=== PATIENT | male | born 1955 | race Caucasian/White ===

== ENCOUNTER → 2021-04-11 08:09 | Outpatient (BNVA) | payer OTHER, SELFPAY | PROVIDERS: PCP Internal Medicine; Visit Provider Internal Medicine Rheumatology ==

== ENCOUNTER → 2021-05-19 07:26 | Outpatient (BNVA) | payer OTHER, SELFPAY | PROVIDERS: PCP Internal Medicine; Referring Provider Internal Medicine; Visit Provider Physician Assistant | DX: Z13.89 Encounter for screening for other disorder (principal) ==

== ENCOUNTER 2021-07-12 08:00 | Outpatient (REF) | payer OTHER, SELFPAY ==
[2021-07-12 08:49] LABS: MANUAL DIFF FLAG NO
[2021-07-12 09:00] LABS: Basophils Percent Auto 0.3 % (0-2); Eosinophils Absolute Auto 0.3 X10*3/uL (0.0-0.4); Eosinophils Percent Auto 2.9 % (0-4); Hematocrit 49.6 % (42.0-52.0); Imm Gran Abs Auto 0.03 X10*3/uL (0.00-0.03); Imm Gran Pct Auto 0.3 % (0.0-0.4); Lymphocytes Absolute Auto 2.3 X10*3/uL (1.2-4.9); Mean Corpuscular HGB Conc 32.3 g/dl (31.0-36.0); Mean Platelet Volume 10.2 fL (9.4-12.4); Monocytes Absolute Auto 0.9 X10*3/uL (0.1-1.2); Monocytes Percent Auto 8.9 % (2-11); Neutrophils Absolute Auto 6.4 x10*3/uL (2.0-8.3); Neutrophils Percent Auto 64.6 % (45-73); Platelet Count 306 X10*3/uL (160-400); Red Blood Count 5.51 X10*6/uL (4.60-5.80); Red Cell Distribution Width 14.1 % (11.0-16.0); White Blood Count 9.9 X10*3/uL (4.8-10.8)
[2021-07-12 09:43] LABS: Erythrocyte Sedimentation Rate 7 MM/HR (0-15)
[2021-07-12 09:54] LABS: Alanine Aminotransferase 16 U/L (0-40); Albumin Level 3.9 g/dL (3.5-5.0); Alkaline Phosphatase 88 U/L (39-117); Anion Gap 12 (12-20); Aspartate Amino Transferase 19 U/L (5-37); Bilirubin Total 0.4 mg/dL (0.0-1.0); Blood Urea Nitrogen 16 mg/dL (9-16); C Reactive Protein 2.45 mg/dL (< or = 0.50); Calcium 9.3 mg/dL (8.4-10.2); Carbon Dioxide 26 mmol/L (22-29); Chloride 105 mmol/L (96-108); Estimated Glomerular Filt Rate > 60; Glucose Random 99 mg/dL (60-115); Potassium 5.3 mmol/L (3.3-5.1); Sodium 138 mmol/L (135-145); Total Protein 7.4 g/dL (6.5-8.0)
[2021-07-15 08:57] LABS: TS Negative Control Passed; TS Panel A 0; TS Panel B 0; TS Positive Control Passed; TSpotTB Negative (Negative)
== END 2021-07-12 08:01 | disposition home or self-care (01) ==
LOC: HO.LAB 08:00
PROVIDERS: PCP Internal Medicine; Visit Provider Internal Medicine Rheumatology
DX: Z11.1 Encounter for screening for respiratory tuberculosis (principal); M45.0 Ankylosing spondylitis of multiple sites in spine; M16.0 Bilateral primary osteoarthritis of hip; Z79.899 Other long term (current) drug therapy
CPT/HCPCS: 36415; 80053; 85025; 85652; 86140; 86481

== ENCOUNTER 2021-09-12 08:52 | Day surgery (SDC) | payer OTHER, SELFPAY ==
--- NOTE | 2021-09-09 09:57 | HO.ANESPROP2 ---
Documented by User: Myriam Carney NP 09/09/21 09:58 HPI - Anesthesia Eval Consult details Narrative: 66yo M for Colonoscopy PMFSH Active Problems Active Problems: All Active Problems (Updated 09/06/21 @ 16:15 by Brooklyn Aponte RN) History of diverticulitis of colon (Acute) Osteoarthritis, hip, bilateral (Acute) Long-term use of immunosuppressant medication (Acute) Diverticulosis (Acute) Ankylosing spondylitis of multiple sites in spine (Acute) Past Medical History Medical History Ankylosing spondylitis of multiple sites in spine Diverticulosis Elevated cholesterol Long-term use of immunosuppressant medication Osteoarthritis, hip, bilateral Smoker Social History Social History Household Members: Significant Other Housing: House Are you a primary career resource specialist to a significant other at home: No Do you presently have visiting nurse or other home services: No Alcohol intake: never Patient Tobacco Use Status: Current everyday Tobacco user Tobacco use type: Cigarette Cigarette Packs Per Day: 1 Cigarettes Per Day: 20.0 Years Smoked: 20 years e-Cigarette/Vaping Use: Never Used Second Hand Smoke Exposure: Yes Use of substances other than those prescribed or required for medical reasons: Yes Substance Use Frequency: Daily Are you DNR?: No Advance Directives: No Advance Directives Information Provided: Yes service: No Meds Allergies Allergy/AdvReac Type Severity Reaction Status Date / Time No Known Allergies Allergy Unverified 09/06/21 16:16 [No Known Allergies*] Home Medications Medication Instructions Recorded Confirmed Last Taken Type atorvastatin 10 mg tablet 10 mg PO DAILY 04/11/21 09/06/21 Unknown History naproxen sodium 220 mg tablet 440 mg PO BID PRN Pain 04/11/21 09/06/21 Unknown History (Aleve) Exam Exam Date and Time: September 09, 2021 0957 Pertinent Lab Results Pertinent Lab Results: Laboratory Tests 07/12/21 07/12/21 08:48 08:48 WBC 9.9 Hgb 16.0 Hct 49.6 Plt Count 306 Sodium 138 Potassium 5.3 H Chloride 105 Carbon Dioxide 26 BUN 16 Creatinine 0.87 Assessment and Plan Assessment Anesthesia Assessment: Chart Reviewed Documented by User: Agnieszka Phelan MD 09/12/21 10:18 PMFSH Past Medical History Medical History Ankylosing spondylitis of multiple sites in spine Diverticulosis Elevated cholesterol Long-term use of immunosuppressant medication Osteoarthritis, hip, bilateral Smoker Surgical History History of Problems with Anesthesia: No Social History Social History Household Members: Significant Other Housing: House Are you a primary career resource specialist to a significant other at home: No Do you presently have visiting nurse or other home services: No Alcohol intake: never Patient Tobacco Use Status: Current everyday Tobacco user Tobacco use type: Cigarette Cigarette Packs Per Day: 1 Cigarettes Per Day: 20.0 Years Smoked: 20 years e-Cigarette/Vaping Use: Never Used Second Hand Smoke Exposure: Yes Use of substances other than those prescribed or required for medical reasons: Yes Substance Use Frequency: Daily Are you DNR?: No Advance Directives: No Advance Directives Information Provided: Yes service: No Meds Allergies Allergy/AdvReac Type Severity Reaction Status Date / Time No Known Allergies Allergy Unverified 09/06/21 16:16 [No Known Allergies*] Home Medications Medication Instructions Recorded Confirmed Last Taken Type atorvastatin 10 mg tablet 10 mg PO DAILY 04/11/21 09/06/21 Unknown History naproxen sodium 220 mg tablet 440 mg PO BID PRN Pain 04/11/21 09/06/21 Unknown History (Aleve) Exam Airway Mallampati Class: II (Edentulous) TM Dist: >3cm Neck ROM: Limited Denture: Upper and Lower Loose/Missing/Broken Teeth: Yes, Upper and Lower Heart: RRR Lungs: CTA Assessment and Plan Assessment Anesthesia Assessment: Anesthesia Plan Discussed Final Anesthetic Review History of Problems with Anesthesia: No NPO: Yes ASA Class: II Final Preanesthetic Review: Meds/Allgs Chart Reviewed, Consent Obtained/Reviewed and Anes Risks/Benef Reviewed Patient Risk: Low Procedure Risk: Low Anesthetic Plan Anesthetic Plan: MAC: Disposition: Standard PACU
[2021-09-12 09:05] VITALS: BP 99/82; PULSE 59; RESP 16; TEMP 36.5; O2SAT 98; BMI 22.1
[2021-09-12] MEDS: Lactated Ringers 1,000 ML 100 ML IVCONT (09:14)
--- NOTE | 2021-09-12 09:56 | MHC.SHP ---
Pre-Procedural Eval Section A Date of Service: 09/12/21 The patient is an INPATIENT: No The History & Physical has been completed within 30 days and I have reviewed it.: No Section B Chief Complaint: Diverticulosis of intestine,screening,hx digestive Details of Present Illness: Colon cancer screen, passed episode of diverticulitis Relevant Family History (Specify if Yes): No Relevant Social History: Tobacco Use Present Medications: see Short Stay Collaborative assessment Medical History: Significant History (Ankylosing spondylitis of multiple sites in spine Diverticulosis Long-term use of immunosuppressant medication Osteoarthritis, hip, bilateral) History of Previous Operations: No relevant previous surgery Allergies: Allergies Allergy/AdvReac Type Severity Reaction Status Date / Time No Known Allergies Allergy Unverified 09/06/21 16:16 [No Known Allergies*] Review of Systems Sugical H&P ROS: Negative: Constitution, Cardiovascular, Respiratory and Gastrointestinal Exam Surgical H&P Exam: Normal: Heart, Normal: Lungs, Normal: Extremities and Normal: Abdomen Plan Diagnosis/Plan: Unchanged I have reviewed the history and physical and performed a pertinent physical examination on my patient. No changes have occurred unless specified.
--- NOTE | 2021-09-12 10:07 | P.OP_ITS ---
Operative Note Operative Note Date of Service: 09/12/21 Narrative: Pre-op diagnosis: Colon cancer screening, past episode of diverticulitis Post-op diagnosis:?other (Colon polyps, diverticulosis, hemorrhoids) Procedure: ? COLONOSCOPY TILL CECUM WITH BIOPSIES, SNARE POLYPECTOMY AND SUBMUCOSAL INJECTION Consent: Indications for the procedure and potential complications of bleeding, perforation, reaction to medications and missed diagnosis were discussed with the patient and informed consent was obtained. Instrument: Olympus PCF H 190 L variable stiffness pediatric colonoscope Monitoring: Vital signs and clinical assessment, intermittent blood pressure monitoring, continuous EKG monitoring, Pulse oximetry and Carbon Dioxide monitoring were done throughout the procedure. Colon withdrawl time was 35 minutes. Procedure: The patient was placed in the left lateral decubitis position and pre-procedure medications were administered. After a digital rectal examination of the ano-rectum, the video colonoscope was inserted into the rectum and advanced through the colon to the cecum. The colonoscope was slowly withdrawn in a retrograde panoramic fashion and the colon mucosa was carefully examined including a retroflexed view of the rectum. Findings and interventions are described below. Procedure Difficulty: Without difficulty Findings: Terminal Ileum: Not evaluated Cecum:? A 1.5 to 1.8 mm sessile polyp at the margin of the appendicualr orifice - raised with 15 cc of normal saline and removed with a hot snare.? Residual polyp was removed with cold biopsy and polypectomy site was treated with cautery using the snare tip Ascending Colon:? Normal Transverse Colon:? A 12-15 mm sessile polyp removed with a hot snare Descending Colon:? Moderate diverticulosis Sigmoid Colon:? Moderate diverticulosis Rectum:? A 10 mm sessile polyp removed with the cold snare. Ano-rectum:? Moderate internal hemorrhoids Colon preparation: Excellent ? Impression and Post Procedure Diagnosis: Colonoscopy Findings: Three medium sized polyps removed. Random biopsies were obtained from the right and left colon to check for microscopic colitis Moderate diverticulosis seen in the left colon Moderate hemorrhoids on retroflexed exam. Plan: Await pathology results Patient has an appointment on 10/03/21 in the [facility] with BRADEN Brito. Repeat Colonoscopy interval based on path results - in 1 year if cecal polyp is adenomatous to check polypectomy site in the cecum. Above findings were reviewed with the patient and colon polyps and diverticulosis handouts were given in the discharge area Surgeon: Chivo Wiggins MD Anesthesia:?MAC (Dr Phelan) Was an Education And Training Manager used for this Procedure?:?Yes Education And Training Manager:?Pierce Haynes Estimated blood loss (mL):?0 Pathology:?other (A- TRANSVERSE COLON POLYP? B- POLYP AT APPENDICEAL ORIFACE? O- RISE USED? C- RIGHT SIDED COLON BXS? R/O MICROSCOPIC COLITIS? D- LEFT SIDED COLON BXS? R/O MICROSCOPIC COLITIS? E= RECTAL POLYP) Condition:?stable Disposition:?PACU
[2021-09-12 10:57] VITALS: BP 95/51; PULSE 62; RESP 20; TEMP 36.3; O2SAT 98
[2021-09-12 11:12] VITALS: BP 98/59; PULSE 52; RESP 22; O2SAT 99
[2021-09-12 11:27] VITALS: BP 103/67; PULSE 53; RESP 16; TEMP 36.5; O2SAT 98
== END 2021-09-12 12:02 | disposition home or self-care (01) ==
PROVIDERS: PCP Internal Medicine; Visit Provider Internal Medicine Gastroenterology
PROC: 0DJD8ZZ Inspection of Lower Intestinal Tract, Via Natural or Artificial Opening Endoscopic (ICD-10-PCS; CPT 45378; principal; 2021-09-12 10:00)
DX: Z12.11 Encounter for screening for malignant neoplasm of colon (principal); D12.0 Benign neoplasm of cecum; D12.3 Benign neoplasm of transverse colon; D12.8 Benign neoplasm of rectum; K57.30 Diverticulosis of large intestine without perforation or abscess without bleeding; Z87.19 Personal history of other diseases of the digestive system; K64.8 Other hemorrhoids; M16.0 Bilateral primary osteoarthritis of hip; Z79.899 Other long term (current) drug therapy; F17.210 Nicotine dependence, cigarettes, uncomplicated
CPT/HCPCS: 45385; 45380; 45381; 88305

== ENCOUNTER → 2022-04-03 08:14 | Outpatient (BNVA) | payer OTHER, SELFPAY | PROVIDERS: PCP Internal Medicine; Visit Provider Internal Medicine Rheumatology | DX: Z13.89 Encounter for screening for other disorder (principal) ==

== ENCOUNTER 2022-04-03 09:08 | Outpatient (REF) | payer OTHER, SELFPAY ==
[2022-04-03 10:40] LABS: MANUAL DIFF FLAG NO
[2022-04-03 10:46] LABS: Basophils Percent Auto 0.3 % (0-2); Eosinophils Absolute Auto 0.3 X10*3/uL (0.0-0.4); Eosinophils Percent Auto 3.1 % (0-4); Hematocrit 49.7 % (42.0-52.0); Hemoglobin 16.4 g/dl (14.0-18.0); Imm Gran Abs Auto 0.03 X10*3/uL (0.00-0.03); Imm Gran Pct Auto 0.3 % (0.0-0.4); Lymphocytes Absolute Auto 2.2 X10*3/uL (1.2-4.9); Lymphocytes Percent Auto 22.4 % (20-40); Mean Corpuscular Hemoglobin 30.2 pg (27.0-33.0); Mean Corpuscular Volume 91.5 fL (80.0-98.0); Mean Platelet Volume 10.6 fL (9.4-12.4); Monocytes Percent Auto 9.8 % (2-11); Neutrophils Absolute Auto 6.4 x10*3/uL (2.0-8.3); Neutrophils Percent Auto 64.1 % (45-73); Platelet Count 349 X10*3/uL (160-400); Red Blood Count 5.43 X10*6/uL (4.60-5.80); Red Cell Distribution Width 14.2 % (11.0-16.0); White Blood Count 9.9 X10*3/uL (4.8-10.8)
[2022-04-03 10:57] LABS: C Reactive Protein 2.53 mg/dL (< or = 0.50)
[2022-04-03 11:27] LABS: HBS Num1 0.07 mIU/mL (0-7.99); HBc Num1 0.16 S/CO (0.00-0.79); HBsAGNum1 0.33 S/CO (0.00-0.99); Hepatitis A Antibody IgM 0.23 Index (0-0.79); Hepatitis B Core Antibody Nonreactive (Nonreactive); Hepatitis B Surface Antigen Negative (Negative); ~HepC Num1 0.16 S/CO (0.00-0.79); ~Hepatitis A Antibody IgM Nonreactive (Nonreactive); ~Hepatitis B Surface Antibody NONREACTIVE (Nonreactive); ~Hepatitis C Antibody Nonreactive (Nonreactive)
[2022-04-03 11:32] LABS: Erythrocyte Sedimentation Rate 12 MM/HR (0-15)
== END 2022-04-03 09:09 | disposition home or self-care (01) ==
LOC: HO.10HDL 09:08
PROVIDERS: Visit Provider Internal Medicine Rheumatology
DX: M45.0 Ankylosing spondylitis of multiple sites in spine (principal); Z79.899 Other long term (current) drug therapy
CPT/HCPCS: 36415; 85025; 85652; 86140; 86704; 86706; 86709; 86803; 87340

== ENCOUNTER 2022-10-02 10:37 | Outpatient (AMB) | payer MEDICARE, SELFPAY ==
[2022-10-02 10:38] VITALS: BP 100/60; PULSE 71; TEMP 36.4; O2SAT 98; BMI 24.3
--- NOTE | 2022-10-02 10:38 | A.OFFVIS_ITS ---
Intake Vital Signs 10/02/22 10:38 Height 5 ft 3 in Weight 137 lb 5.568 oz BMI 24.3 BP 100/60 Blood Pressure Location Lt brachial Position Sitting Pulse 71 Pulse Source Pulse Oximeter Temp 97.5 F Temp Source Skin Pulse Oximetry (%) 98 Oxygen Delivery Method Room Air Intake Visit Reasons: Intake Note: Here to follow up on . Sausage Maker Required: No Accompanied by: Self / Same As Patient Allergies No Known Allergies [No Known Allergies*] Allergy (Unverified 10/02/22 10:43) Medication List - Last Reconciled 10/02/22 by Jim Chapin MD atorvastatin 10 mg PO DAILY etanercept (Enbrel SureClick) 50 mg subcut QWEEK naproxen sodium (Aleve) 440 mg PO BID PRN HPI HPI Comments History of Present Illness Details The patient returns for evaluation of his ankylosing spondylitis. He remains on Enbrel 50 mg every week. This seems to suit him fine. He takes occasional Aleve if needed for other pains including occasional headache. He has been on the Enbrel for about 20 years. There have been times when he could not get the Enbrel and felt miserable with more back and neck pain and stiffness. He is now retired and notes that he did gain some weight. His woman friend with whom he lives developed COVID earlier this year and was hospitalized. She is slowly recovering but he thinks he never actually got symptomatic COVID. He has not had any recent symptoms of iritis, skin rashes, or bloody diarrhea. He is still smoking about 1/2 pack per day. PFSH Medical History Ankylosing spondylitis of multiple sites in spine Diverticulosis Elevated cholesterol Long-term use of immunosuppressant medication Osteoarthritis, hip, bilateral Smoker Surgical History Hx of colonoscopy Social History Household Members: Significant Other Housing: House Are you a primary health care coach to a significant other at home: No Do you presently have visiting nurse or other home services: No Alcohol intake: never Patient Tobacco Use Status: Current everyday Tobacco user Tobacco use type: Cigarette Cigarette Packs Per Day: 0.5 Cigarettes Per Day: 10.0 Years Smoked: 20 years e-Cigarette/Vaping Use: Never Used Second Hand Smoke Exposure: Yes service: No Current occupational status: retired 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 Review of Systems Const Details: A few lb weight gain since jail. Negative for appetite change, fever, chills, malaise and fatigue Eyes Details: Negative for vision change, dry eyes,headaches and dizziness Card Details: Negative chest pain, edema and syncope Resp Details: Negative for SOB, cough and wheezing GI Details: Negative indigestion/heartburn, nausea, abdominal pain, bowel changes, diarrhea, constipation and bloody stool. Skin/Breast Details: Negative for itching, rash, hives, Raynaud's symptoms, sun sensitivity, and skin cancer Gage/Lymph Details: Negative for excessive bruising or bleeding. Physical Exam Vital Signs: Last Vital Signs Temp 97.5 F 10/02/22 10:38 Pulse 71 10/02/22 10:38 BP 100/60 10/02/22 10:38 Pulse Ox 98 10/02/22 10:38 Oxygen Delivery Method Room Air 10/02/22 10:38 BMI result Body Mass Index 24.3 APPEARANCE: Patient in no acute distress EYES no redness, pupils equal and reactive to light, eyelids normal THROAT:? Oral mucosa moist, no ulcerations NECK:? No thyromegaly or masses, no adenopathy, trachea midline. HEART:? Regulrar rhythm, S1-S2 heard, no murmurs, rubs or gallops. LUNG:? Clear to percussion and auscultation ABD:? Normal bowel sounds, no organomegaly, masses or tenderness. EXTREMITIES:? No edema, no calf tenderness, normal peripheral pulses. SKIN:? No inflammatory or neoplastic lesions.? Normal color and turgor JOINT EXAM: ? Cervical Spine:? Lateral flexion limited to 10 degrees either side with slight pain.? Rotation is limited to about 15 degrees also with pain.? With his heels against the wall he cannot extend the neck fully and there is about 6 cm between the occiput and the wall.? Thoracic Spine:.? No scoliosis.? No tenderness on palpation.? There is only about 0.5 cm lateral Naz's lateral flexion evident. Lumbar Spine:.? Alignment normal.? No lumbar motion, no tenderness. Chest Wall:.? No tenderness, swelling, increased warmth or erythema. Hands:.? Normal pain-free range of motion without tenderness, swelling, increased warmth or erythema. 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 Wrists:.? Normal pain-free range of motion without tenderness, swelling, incre ased warmth or erythema. Elbows:. Normal pain-free range of motion without tenderness, swelling, increased warmth or erythema. Shoulders:.? Right:? Normal pain-free range of motion.? No adenopathy, abductor weakness, tenderness or swelling.? Left:? No discomfort with abduction but he can only abduct to about 150 degrees.? There may be some limitation of internal external rotation as well.? There is no tenderness, abductor weakness, adenopathy or swelling. Hips:? Right:? Flexion is normal and pain-free.? There is no discomfort with extremes of external rotation.? No internal rotation is possible.? There is no groin pain with motion.?? Left:? Flexion and external rotation seem normal.? There is decreased range of motion with internal rotation but no pain.? No groin tenderness or mass. Hip bursa:.? No tenderness. Knees:.?? Normal pain-free range of motion without tenderness, swelling, increased warmth or erythema.? There is no effusion or crepitation Ankles:? Normal pain-free range of motion without tenderness, swelling, increased warmth or erythema. ? Results Reviewed Results Reviewed: Laboratory Tests 07/12/21 04/03/22 04/03/22 08:48 09:05 09:05 WBC 9.9 ESR 12 C-Reactive Protein Hep Bs Antigen TB Test (T-Spot) Com Negative 04/03/22 04/03/22 09:05 09:05 WBC ESR C-Reactive Protein 2.53 H Hep Bs Antigen Negative TB Test (T-Spot) Com Assessment & Plan Assessment & Plan (1) Long-term use of immunosuppressant medication: Code(s): Z79.899 - Other intermediate teacher (current) drug therapy (2) Osteoarthritis, hip, bilateral: Code(s): M16.0 - Bilateral primary osteoarthritis of hip (3) Ankylosing spondylitis of multiple sites in spine: Comment: 20+ years of symptoms, hx iritis, did well on Enbrel since 2006 Code(s): M45.0 - Ankylosing spondylitis of multiple sites in spine Plan Ankylosing spondylitis with no significant symptoms on the current dose of Enbrel. He does have some limitation of motion in the hips reflecting some secondary osteoarthritis but this does not really bother him on a day-to-day basis so far. Similarly there is some limited motion in the shoulders with some discomfort. We will check acute phase reactants and CBC. He will continue with the Enbrel as above. A follow-up in 6 months would be reasonable. Orders: Orders C Reactive Protein Today M45.0 - Ankylosing spondylitis of multiple sites in spine, Z79.899 - Other senior care (current) drug therapy Complete Blood Count Auto Diff Today M45.0 - Ankylosing spondylitis of multiple sites in spine, Z79.899 - Other senior care (current) drug therapy Erythrocyte Sedimentation Rate Today M45.0 - Ankylosing spondylitis of multiple sites in spine, Z79.899 - Other intermediate teacher (current) drug therapy Coding Level of Care Code Est Pt Level 3 (14604) Diagnoses Long-term use of immunosuppressant medication Z79.899 Osteoarthritis, hip, bilateral M16.0 Ankylosing spondylitis of multiple sites in spine M45.0
== END 2022-10-02 11:09 | disposition home or self-care (01) ==
PROVIDERS: PCP Internal Medicine; Visit Provider Internal Medicine Rheumatology
DX: Z79.899 Other long term (current) drug therapy (principal); M16.0 Bilateral primary osteoarthritis of hip; M45.0 Ankylosing spondylitis of multiple sites in spine
CPT/HCPCS: 99213

== ENCOUNTER → 2022-10-02 10:37 | Outpatient (BNVA) | payer MEDICARE, SELFPAY | PROVIDERS: PCP Internal Medicine; Visit Provider Internal Medicine Rheumatology | DX: M45.0 Ankylosing spondylitis of multiple sites in spine (principal); M16.0 Bilateral primary osteoarthritis of hip; F17.210 Nicotine dependence, cigarettes, uncomplicated; Z79.60 Long term (current) use of unspecified immunomodulators and immunosuppressants | CPT/HCPCS: 36415; 85025; 85652; 86140; 99212 ==

== ENCOUNTER 2022-10-02 11:13 | Outpatient (REF) | payer OTHER, MEDICARE, SELFPAY ==
[2022-10-02 13:11] LABS: MANUAL DIFF FLAG NO
[2022-10-02 13:20] LABS: Basophils Absolute Auto 0.1 X10*3/uL (0.0-0.2); Basophils Percent Auto 0.5 % (0-2); Eosinophils Absolute Auto 0.2 X10*3/uL (0.0-0.4); Hematocrit 52.3 % (42.0-52.0); Hemoglobin 17.2 g/dl (14.0-18.0); Imm Gran Abs Auto 0.03 X10*3/uL (0.00-0.03); Imm Gran Pct Auto 0.3 % (0.0-0.4); Lymphocytes Absolute Auto 2.3 X10*3/uL (1.2-4.9); Lymphocytes Percent Auto 22.5 % (20-40); Mean Corpuscular HGB Conc 32.9 g/dl (31.0-36.0); Mean Corpuscular Hemoglobin 29.7 pg (27.0-33.0); Mean Corpuscular Volume 90.2 fL (80.0-98.0); Mean Platelet Volume 10.4 fL (9.4-12.4); Monocytes Absolute Auto 0.8 X10*3/uL (0.1-1.2); Monocytes Percent Auto 8.2 % (2-11); Neutrophils Absolute Auto 6.8 x10*3/uL (2.0-8.3); Neutrophils Percent Auto 66.5 % (45-73); Platelet Count 376 X10*3/uL (160-400); Red Cell Distribution Width 14.4 % (11.0-16.0); White Blood Count 10.3 X10*3/uL (4.8-10.8)
[2022-10-02 13:28] LABS: C Reactive Protein 2.99 mg/dL (< or = 0.50)
[2022-10-02 14:09] LABS: Erythrocyte Sedimentation Rate 9 MM/HR (0-15)
== END 2022-10-02 11:14 | disposition home or self-care (01) ==
LOC: HO.10HDL 11:13
PROVIDERS: Visit Provider Internal Medicine Rheumatology
DX: Z13.89 Encounter for screening for other disorder (principal)
CPT/HCPCS: 36415; 85025; 85652; 86140

== ENCOUNTER 2023-03-22 09:26 | Outpatient (AMB) | payer OTHER, MEDICARE, SELFPAY ==
[2023-03-22 09:36] VITALS: BP 100/58; PULSE 55; TEMP 36.1; O2SAT 96; BMI 23.9
--- NOTE | 2023-03-22 09:36 | MHC.OFFVIS ---
Intake Vital Signs 03/22/23 09:36 Height 5 ft 3 in Weight 134 lb 14.766 oz BMI 23.9 BP 100/58 L Blood Pressure Location Rt brachial Position Sitting Pulse 55 Pulse Source Pulse Oximeter Temp 97 F Temp Source Skin Pulse Oximetry (%) 96 Oxygen Delivery Method Room Air Intake Visit Reasons: with laboratory technologist/Mar 2023 Intake Note: Patient last seen by Dr Chapin on 10/02/22 presents today for follow up and test results. Jacquard Loom Fixer Required: No Accompanied by: Self / Same As Patient Allergies No Known Allergies [No Known Allergies*] Allergy (Unverified 03/22/23 09:40) HPI HPI Comments History of Present Illness Details Mr. Spears 67yoM returns for follow-up of his ankylosing spondylitis. He remains on Enbrel 50 mg every week. This has been working for him he calls it his saviour . He takes occasional Aleve if needed for other pains including occasional headache and hip soreness which seems to help. He says since he is retired he feels achy more because he is less active and getting older. He has been on the Enbrel for about 20 years. There have been times when he could not get the Enbrel and felt miserable with more back and neck pain and stiffness. He has not had any recent symptoms of iritis, skin rashes, or bloody diarrhea. He is still smoking about 1/2 pack per day. [facility] Medical History (Updated 03/22/23 @ 10:35 by [facility] Psoriasis Elevated cholesterol Smoker Osteoarthritis, hip, bilateral Long-term use of immunosuppressant medication Diverticulosis Ankylosing spondylitis of multiple sites in spine Surgical History Hx of colonoscopy Social History Household Members: Significant Other Housing: House Are you a primary congregational care pastor to a significant other at home: No Do you presently have visiting nurse or other home services: No Alcohol intake: never Patient Tobacco Use Status: Current everyday Tobacco user Tobacco use type: Cigarette Cigarette Packs Per Day: 0.5 Cigarettes Per Day: 10.0 Years Smoked: 20 years e-Cigarette/Vaping Use: Never Used Second Hand Smoke Exposure: Yes service: No 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 Review of Systems Const All systems reviewed & are unremarkable except as noted in HPI and below Physical Exam Vital Signs: Last Vital Signs Temp 97 F 03/22/23 09:36 Pulse 55 03/22/23 09:36 BP 100/58 L 03/22/23 09:36 Pulse Ox 96 03/22/23 09:36 Oxygen Delivery Method Room Air 03/22/23 09:36 BMI result Body Mass Index 23.9 APPEARANCE: Patient in no acute distress EYES no redness, pupils equal and reactive to light, eyelids normal THROAT:? Oral mucosa moist, no ulcerations NECK:? No thyromegaly or masses, no adenopathy, trachea midline. HEART:? Regulrar rhythm, S1-S2 heard, no murmurs, rubs or gallops. LUNG:? Clear to percussion and auscultation EXTREMITIES:? No edema, no calf tenderness, normal peripheral pulses. SKIN:? Scattered patches that look like psoriasis on bilateral lower legs/Sampson? Normal color and turgor JOINT EXAM: Cervical Spine:? Lateral flexion limited to 10 degrees either side with slight pain.? Rotation is limited to about 15 degrees also with pain.? With his heels against the wall he cannot extend the neck fully and there is about 6 cm between the occiput and the wall.? Thoracic Spine:.? No scoliosis.? No tenderness on palpation.? There is only about 0.5 cm lateral Naz's lateral flexion evident. Lumbar Spine:.? Alignment normal.? No lumbar motion, tenderness to paraspinal muscles. Chest Wall:.? No tenderness, swelling, increased warmth or erythema. Hands:.? Normal pain-free range of motion without tenderness, swelling, increased warmth or erythema. Able to make a full fist and has a good as400 consultant strength. Wrists:.? Normal pain-free range of motion without tenderness, swelling, increased warmth or erythema. Elbows:. Normal pain-free range of motion without tenderness, swelling, increased warmth or erythema. Shoulders:.? Right:? Normal pain-free range of motion.? No adenopathy, abductor weakness, tenderness or swelling.? Left:? No discomfort with abduction but he can only abduct to about 150 degrees.? There may be some limitation of internal external rotation as well.? There is no tenderness, abductor weakness, adenopathy or swelling. Hips:? Right:? Flexion is normal and pain-free.? There is no discomfort with extremes of external rotation.? No internal rotation is possible.? There is no groin pain with motion.?? Left:? Flexion and external rotation seem normal.? There is decreased range of motion with internal rotation but no pain.? No groin tenderness or mass. Hip bursa:.? No tenderness. Knees:.?? Normal pain-free range of motion without tenderness, swelling, increased warmth or erythema.? There is no effusion or crepitation Ankles:? Normal pain-free range of motion without tenderness, swelling, increased warmth or erythema. I spent 30 minutes reviewing chart, evaluating patient, discussing, ordering and documenting ? Results Reviewed Results Reviewed: Need updated labs 07/12/21 04/03/22 04/03/22 08:48 09:05 09:05 WBC 9.9 ESR 12 C-Reactive Protein Hep Bs Antigen TB Test (T-Spot) Com Negative 04/03/22 04/03/22 09:05 09:05 WBC ESR C-Reactive Protein 2.53 H Hep Bs Antigen Negative TB Test (T-Spot) Com Laboratory Tests 10/02/22 11:20 WBC 10.3 RBC 5.80 Hgb 17.2 Hct 52.3 H ESR 9 C-Reactive Protein 2.99 H Assessment & Plan Assessment & Plan (1) Long-term use of immunosuppressant medication: Code(s): Z79.899 - Other terminal operations supervisor (current) drug therapy (2) Osteoarthritis, hip, bilateral: Code(s): M16.0 - Bilateral primary osteoarthritis of hip Qualifiers: Osteoarthritis type: primary Qualified Code(s): M16.0 - Bilateral primary osteoarthritis of hip (3) Ankylosing spondylitis of multiple sites in spine: Comment: 20+ years of symptoms, hx iritis, did well on Enbrel since 2006 Code(s): M45.0 - Ankylosing spondylitis of multiple sites in spine (4) Psoriasis: Code(s): L40.9 - Psoriasis, unspecified Plan #Ankylosing spondylitis that has been well controlled with current dose of Enbrel but in recent months has some increased soreness to hips and lower back. This could be due to weather or OA. He is feeling more sore in hips and lower paraspinal muscles. His last set of labs in September 2022 showed elevated CRP. so this could also be a flare if CRP is still elevate. I will obtain updated labs to assess if resolved. If CRP remains elevated, we consider a course of Prednisone to resolved. He will continue with the Enbrel 50 mg QW and Aleve as needed. We will obtain updated Xrays of Spine, hips and SI joint assess further if worsening OA and status. if any syndesmosphytes to spine. Patient is also an everyday smoker #OA Multiple Joints: He does have some limitation of motion in the hips and it is feeling more sore lately. He likely has secondary osteoarthritis; we will obtain xray to assess. Similarly there is some limited motion in the shoulders with some discomfort. . #Commercial Lines Manager Use: We will continue to check acute phase reactants and CBC. Patient is aware that he should hold Enbrel if he develops fever, infections, non-healing wound, cancer diagnosis or getting vaccines. #Psoriasis: He has some patches on his lower legs that looks like PsO and sre itchy. Will prescribe Clobetasol to be used daily two weeks on 2 weeks off A follow-up in 6 months would be reasonable. Orders: Orders Complete Blood Count Auto Diff Today Z79.899 - Other terminal operations supervisor (current) drug therapy Comprehensive Met. Panel Today Z79.899 - Other terminal operations supervisor (current) drug therapy XR lumbar spine 2-3V Today M45.0 - Ankylosing spondylitis of multiple sites in spine XR hip BI w PEL1V Today M45.0 - Ankylosing spondylitis of multiple sites in spine Erythrocyte Sedimentation Rate Today Z79.899 - Other prison (current) drug therapy C Reactive Protein Today Z79.899 - Other prison (current) drug therapy XR cervical spine 2V Today M45.0 - Ankylosing spondylitis of multiple sites in spine Medications: New clobetasol 0.05% 1 appl topical BID 2 weeks 45 grams 1RF L40.9 - Psoriasis, unspecified clobetasol 0.05% Apply to rash twice daily for two weeks then take two weeks off 1 appl topical BID 2 weeks 45 grams 1RF L40.9 - Psoriasis, unspecified Coding Level of Care Code Est Pt Level 4 (56580) Diagnoses Long-term use of immunosuppressant medication Z79.899 Primary osteoarthritis of both hips M16.0 Osteoarthritis type: primary Ankylosing spondylitis of multiple sites in spine M45.0 Psoriasis L40.9
== END 2023-03-22 10:15 | disposition home or self-care (01) ==
PROVIDERS: PCP Internal Medicine; Visit Provider Nurse Practitioner Family
DX: Z79.899 Other long term (current) drug therapy (principal); M16.0 Bilateral primary osteoarthritis of hip; M45.0 Ankylosing spondylitis of multiple sites in spine; L40.9 Psoriasis, unspecified
CPT/HCPCS: 99214

== ENCOUNTER 2023-03-22 09:26 | Outpatient (REF) | payer MEDICARE, SELFPAY ==
--- NOTE | ~2023-03-22 | XR_ITS ---
EXAMINATION: XR cervical spine 2V, XR lumbar spine 2-3V CLINICAL INFORMATION: Ankylosing spondylitis COMPARISON: None TECHNIQUE: 3 views of the cervical spine and 3 views of the lumbar spine FINDINGS: CERVICAL SPINE: The cervical spine is visualized to the level of C7-T1 on the lateral view. Vertebral body alignment is maintained. Vertebral body heights are maintained. Lateral masses of C1 are well aligned on C2. Visualized portion of the dens is intact. Mild multilevel degenerative disc disease with loss of disc space height and facet arthropathy. No syndesmophyte. No prevertebral soft tissue swelling. LUMBAR SPINE: 5 nonrib-bearing lumbar-type vertebral bodies. Vertebral body heights are maintained. Alignment is maintained. Shiny corner sign the anterior superior endplate of L5 with a syndesmophyte at L3-L4 compatible with history of ankylosing spondylitis. Mild degenerative disc disease at L4-L5 and L5-S1 with loss of disc space height and facet arthropathy. Paravertebral soft tissues are unremarkable. XR/XR lumbar spine 2-3V IMPRESSION: * Shiny corner sign the anterior superior endplate of L5 with a syndesmophyte at L3-L4 compatible with history of ankylosing spondylitis. * Mild spondylosis of the cervical and lumbar spine.
--- NOTE | ~2023-03-22 | XR_ITS ---
EXAMINATION: XR BILATERAL HIPS WITH AP PELVIS CLINICAL INFORMATION: Ankylosing spondylitis COMPARISON: None available. TECHNIQUE: AP view of the pelvis and single views of each hip were obtained. FINDINGS: No acute fracture or dislocation. Ankylosis of the sacroiliac joints compatible with history of ankylosing spondylitis. Moderate osteoarthritis of the hips with loss of joint space and subchondral cystic change. Soft tissues are unremarkable. XR/XR hip BI w PEL1V IMPRESSION: 1. Ankylosis of the sacroiliac joints compatible with history of ankylosing spondylitis. 2. Moderate osteoarthritis of the hips with loss of joint space and subchondral cystic change.
--- NOTE | ~2023-03-22 | XR_ITS ---
EXAMINATION: XR cervical spine 2V, XR lumbar spine 2-3V CLINICAL INFORMATION: Ankylosing spondylitis COMPARISON: None TECHNIQUE: 3 views of the cervical spine and 3 views of the lumbar spine FINDINGS: CERVICAL SPINE: The cervical spine is visualized to the level of C7-T1 on the lateral view. Vertebral body alignment is maintained. Vertebral body heights are maintained. Lateral masses of C1 are well aligned on C2. Visualized portion of the dens is intact. Mild multilevel degenerative disc disease with loss of disc space height and facet arthropathy. No syndesmophyte. No prevertebral soft tissue swelling. LUMBAR SPINE: 5 nonrib-bearing lumbar-type vertebral bodies. Vertebral body heights are maintained. Alignment is maintained. Shiny corner sign the anterior superior endplate of L5 with a syndesmophyte at L3-L4 compatible with history of ankylosing spondylitis. Mild degenerative disc disease at L4-L5 and L5-S1 with loss of disc space height and facet arthropathy. Paravertebral soft tissues are unremarkable. XR/XR cervical spine 2V IMPRESSION: * Shiny corner sign the anterior superior endplate of L5 with a syndesmophyte at L3-L4 compatible with history of ankylosing spondylitis. * Mild spondylosis of the cervical and lumbar spine.
== END 2023-03-22 09:27 | disposition home or self-care (01) ==
LOC: HO.XRAY 09:26
PROVIDERS: PCP Internal Medicine; Visit Provider Nurse Practitioner Family
DX: M45.0 Ankylosing spondylitis of multiple sites in spine (principal); M16.0 Bilateral primary osteoarthritis of hip; L40.9 Psoriasis, unspecified; Z79.899 Other long term (current) drug therapy
CPT/HCPCS: 72040; 72100; 73521; 99212

== ENCOUNTER 2023-03-22 10:19 | Outpatient (REF) | payer MEDICARE, SELFPAY ==
[2023-03-22 13:12] LABS: MANUAL DIFF FLAG NO
[2023-03-22 13:30] LABS: Basophils Absolute Auto 0.1 X10*3/uL (0.0-0.2); Basophils Percent Auto 0.5 % (0-2); Eosinophils Absolute Auto 0.2 X10*3/uL (0.0-0.4); Hematocrit 50.5 % (42.0-52.0); Imm Gran Abs Auto 0.03 X10*3/uL (0.00-0.03); Imm Gran Pct Auto 0.3 % (0.0-0.4); Lymphocytes Absolute Auto 2.1 X10*3/uL (1.2-4.9); Mean Corpuscular HGB Conc 33.7 g/dl (31.0-36.0); Mean Corpuscular Hemoglobin 29.7 pg (27.0-33.0); Mean Corpuscular Volume 88.1 fL (80.0-98.0); Mean Platelet Volume 9.9 fL (9.4-12.4); Monocytes Absolute Auto 0.9 X10*3/uL (0.1-1.2); Monocytes Percent Auto 8.7 % (2-11); Neutrophils Absolute Auto 6.7 x10*3/uL (2.0-8.3); Neutrophils Percent Auto 67.5 % (45-73); Platelet Count 380 X10*3/uL (160-400); Red Blood Count 5.73 X10*6/uL (4.60-5.80); Red Cell Distribution Width 13.8 % (11.0-16.0); White Blood Count 9.9 X10*3/uL (4.8-10.8)
[2023-03-22 13:43] LABS: Alanine Aminotransferase 13 U/L (0-40); Albumin Level 3.9 g/dL (3.5-5.0); Alkaline Phosphatase 97 U/L (39-117); Anion Gap 12 (12-20); Aspartate Amino Transferase 17 U/L (5-37); Bilirubin Total 0.5 mg/dL (0.0-1.0); Blood Urea Nitrogen 16 mg/dL (9-16); C Reactive Protein 4.04 mg/dL (< or = 0.50); Calcium 8.7 mg/dL (8.4-10.2); Carbon Dioxide 26 mmol/L (22-29); Chloride 105 mmol/L (96-108); Estimated Glomerular Filt Rate > 60; Glucose Random 108 mg/dL (60-115); Potassium 4.5 mmol/L (3.3-5.1); Sodium 138 mmol/L (135-145)
[2023-03-22 14:07] LABS: Erythrocyte Sedimentation Rate 13 MM/HR (0-15)
== END 2023-03-22 10:20 | disposition home or self-care (01) ==
LOC: HO.10HDL 10:19
PROVIDERS: Visit Provider Nurse Practitioner Family
DX: M45.0 Ankylosing spondylitis of multiple sites in spine (principal); Z79.899 Other long term (current) drug therapy
CPT/HCPCS: 36415; 80053; 85025; 85652; 86140

== ENCOUNTER 2024-04-04 11:53 | Outpatient (REF) | payer MEDICARE, SELFPAY ==
[2024-04-04 13:11] LABS: MANUAL DIFF FLAG NO
[2024-04-04 13:13] LABS: Basophils Absolute Auto 0.1 X10*3/uL (0.0-0.2); Basophils Percent Auto 0.5 % (0-2); Eosinophils Absolute Auto 0.2 X10*3/uL (0.0-0.4); Eosinophils Percent Auto 1.9 % (0-4); Hematocrit 48.9 % (42.0-52.0); Hemoglobin 16.5 g/dl (14.0-18.0); Imm Gran Abs Auto 0.03 X10*3/uL (0.00-0.03); Imm Gran Pct Auto 0.3 % (0.0-0.4); Lymphocytes Percent Auto 17.1 % (20-40); Mean Corpuscular HGB Conc 33.7 g/dl (31.0-36.0); Mean Corpuscular Hemoglobin 29.8 pg (27.0-33.0); Mean Corpuscular Volume 88.3 fL (80.0-98.0); Mean Platelet Volume 9.6 fL (9.4-12.4); Monocytes Absolute Auto 1.1 X10*3/uL (0.1-1.2); Neutrophils Absolute Auto 8.5 x10*3/uL (2.0-8.3); Neutrophils Percent Auto 71.2 % (45-73); Platelet Count 414 X10*3/uL (160-400); Red Blood Count 5.54 X10*6/uL (4.60-5.80); Red Cell Distribution Width 13.9 % (11.0-16.0); White Blood Count 11.9 X10*3/uL (4.8-10.8)
[2024-04-04 13:30] LABS: Alanine Aminotransferase 15 U/L (0-40); Albumin Level 3.8 g/dL (3.5-5.0); Alkaline Phosphatase 115 U/L (39-117); Anion Gap 12 (12-20); Aspartate Amino Transferase 22 U/L (5-37); Bilirubin Total 0.6 mg/dL (0.0-1.0); Blood Urea Nitrogen 19 mg/dL (9-16); C Reactive Protein 10.09 mg/dL (< or = 0.50); Calcium 9.4 mg/dL (8.4-10.2); Carbon Dioxide 26 mmol/L (22-29); Chloride 105 mmol/L (96-108); Estimated Glomerular Filt Rate > 60; Glucose Random 110 mg/dL (60-115); Potassium 4.1 mmol/L (3.3-5.1); Sodium 139 mmol/L (135-145); Total Protein 8.6 g/dL (6.5-8.0)
[2024-04-04 13:54] LABS: Erythrocyte Sedimentation Rate 26 MM/HR (0-15)
[2024-04-07 08:43] LABS: TS Negative Control Passed; TS Panel A 0; TS Panel B 1; TS Positive Control Passed; TSpotTB Negative (Negative)
[2024-04-07 09:33] LABS: HBc Num1 0.11 S/CO (0.00-0.79); HBsAGNum1 0.34 S/CO (0.00-0.99); Hepatitis A Antibody IgM 0.13 Index (0-0.79); Hepatitis B Core Antibody Nonreactive (Nonreactive); Hepatitis B Surface Antigen Negative (Negative); ~HepC Num1 0.13 S/CO (0.00-0.79); ~Hepatitis A Antibody IgM Nonreactive (Nonreactive); ~Hepatitis B Surface Antibody NONREACTIVE (Nonreactive); ~Hepatitis C Antibody Nonreactive (Nonreactive)
== END 2024-04-04 11:54 | disposition home or self-care (01) ==
LOC: HO.10HDL 11:53
PROVIDERS: Visit Provider Student in an Organized Health Care Education/Training Program
DX: M45.0 Ankylosing spondylitis of multiple sites in spine (principal)
CPT/HCPCS: 36415; 80053; 85025; 85652; 86140; 86481; 86704; 86706; 86709; 86803; 87340

== ENCOUNTER 2024-09-04 08:58 | Outpatient (AMB) | payer OTHER, SELFPAY ==
--- NOTE | 2024-09-04 09:01 | A.OFFVIS_ITS ---
Vital Signs 09/04/24 09:08 Height 5 ft 3 in Weight 133 lb 2.547 oz BMI 23.6 BP 100/60 Blood Pressure Location Lt brachial Position Sitting Pulse 52 Pulse Source Pulse Oximeter Pulse Oximetry (%) 98 Oxygen Delivery Method Room Air Intake Visit Reasons: Intake Note: Patient presents for follow up. Allergies No Known Allergies (No Known Allergies*) Allergy (Verified 09/04/24 09:08) Medication List - Last Reconciled 09/04/24 by Lesly Santo MD atorvastatin 10 mg PO DAILY clobetasol 0.05% 1 appl topical BID 2 weeks etanercept (Enbrel SureClick) 50 mg subcut QWEEK 30 days naproxen sodium (Aleve) 440 mg PO BID PRN HPI Comments Details: Patient is a 69-year-old male with hyperlipidemia, polyarticular osteoarthritis and ankylosing spondylitis here today for follow up Interval History: Patient last seen 03/22/23 with Coretta House - On Enbrel 50mg SC weekly - Doing well on medication Today, - Continues to do well but notes he is feeling more achy especially in his neck Rheumatologic History: Melvina Hwang - 20+ years of symptoms, hx iritis, did well on Enbrel since 2006 Initial History: The patient presents for evaluation of his ankylosing spondylitis. He has longstanding disease with significant stiffness in the spine. He has been on Enbrel for over 10 years with successful response. However his prescription ran out about a month ago and he has not been able to get a refill. I had last seen in May of 2020 and he was doing fine with the Enbrel at 50 mg weekly. He did have an episode of diverticulitis last fall that was treated with oral antibiotics. He does not recall any previous colonoscopy even for screening purposes. The GI symptoms have subsided. 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 He did lose weight with the diverticulitis. However with running out of the Enbrel about 4 weeks ago his joint symptoms have returned. This is primarily manifested by buttock and lower back pains but he also has stiffness in the neck and shoulders. The right buttock area appears to be more comfortable than the left. He does have some known osteoarthritis in the hips as well. He is taking naproxen 220 mg [id number] tablets, 2 daily and occasionally supplements this with ibuprofen. He has not had any return of iritis episodes and has no history of any skin rashes. Current Rheumatology Medication(s): Enbrel 50mg SC every week [facility] Medical History (Updated 03/22/23 @ 10:35 [facility] Psoriasis Elevated cholesterol Smoker Osteoarthritis, hip, bilateral Long-term use of immunosuppressant medication Diverticulosis Ankylosing spondylitis of multiple sites in spine Surgical History Hx of colonoscopy Social History Household Members: Significant Other Housing: House Are you a primary companion caregiver to a significant other at home: No Do you presently have visiting nurse or other home services: No 75 years or older and lives alone: No Alcohol intake: never Patient Tobacco Use Status: Current everyday Tobacco user Tobacco use type: Cigarette Cigarette Packs Per Day: 0.5 Cigarettes Per Day: 10.0 Years Smoked: 20 years e-Cigarette/Vaping Use: Never Used Second Hand Smoke Exposure: Yes service: No 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 Review of Systems Const Details: Review of Systems Constitutional: Denies fever, chills, weight loss ENT: Denies vision changes, eye pain or eye redness, dental caries, dry mouth GI: Denies nausea, vomiting, diarrhea, abdominal pain, change in BM Pulm: Denies SOB, OTERO, hemoptysis, wheezing Cards: Denies chest pain, palpitations Skin: Denies Raynaud's, rash, nail changes, photosensitivity, SR VICE PRESIDENT: Denies headaches, weakness, paresthesias, recurrent falls MSK: as per HPI All other systems reviewed and are unremarkable except noted above Physical Exam Exam Exam: Vital signs reviewed Physical Examination CONSTITUITIONAL Patient alert and cooperative. Well appearing and in no apparent painful distress MSK Hands * Right Hand: Able to make a fist. No swelling or tenderness to palpation of these joints. * Left Hand: Able to make a fist. No swelling or tenderness to palpation of these joints. * Herbedens nodes noted bilaterally Wrists * Right Wrist: Full ROM. 70 degrees of wrist flexion, 80 degrees of wrist extension. No swelling or TTP * Left Wrist: Full ROM. 70 degrees of wrist flexion, 80 degrees of wrist extension. No swelling or TTP Elbows * Right Elbow: Full ROM. No swelling or TTP. No TTP of the medial and lateral epicondyles * Left Elbow: Full ROM. No swelling or TTP. No TTP of the medial and lateral epicondyles Shoulders * Right shoulder: Decreased ROM. No swelling noted. No TTP of the AC joint, subacromial bursa or posterior shoulder * Left shoulder: Full ROM. No swelling noted. No TTP of the AC joint, subacromial bursa or posterior shoulder Knees * Right knee: Full ROM. No swelling noted. No TTP of the knee joint lie or pes anserine bursa * Left knee: Full ROM. No swelling noted. No TTP of the knee joint lie or pes anserine bursa. * Crepitations felt bilaterally Ankles * Right ankle: Good ankle dorsiflexion and plantar flexion. No swelling. No TTP of the ankle joint * Left ankle: Good ankle dorsiflexion and plantar flexion. No swelling. No TTP of the ankle joint Feet * Right foot: Negative squeeze test * Left foot: Negative squeeze test Tender points? * No tenderness to palpation of the bilateral trapezius, supraspinatus, anterior costochondral junctions, bilateral suboccipital muscle insertions SKIN No rashes Vital Signs: Last Vital Signs Pulse 52 09/04/24 09:08 BP 100/60 09/04/24 09:08 Pulse Ox 98 09/04/24 09:08 Oxygen Delivery Method Room Air 09/04/24 09:08 BMI result Body Mass Index 23.6 Results Reviewed Results Reviewed: Laboratory Tests 03/22/23 04/04/24 10:23 12:00 WBC 11.9 H RBC 5.54 Hgb 16.5 Hct 48.9 Plt Count 414 H ESR 26 H Sodium 139 Potassium 4.1 Chloride 105 Carbon Dioxide 26 BUN 19 H Creatinine 0.89 AST 22 ALT 15 C-Reactive Protein 4.04 H 10.09 H Infectious Labs 04/04/24 12:00 Hepatitis A IgM Ab Nonreactive Hep Bs Antigen Negative Hep Bs Antibody NONREACTIVE Hep B Core Total Ab Nonreactive Hepatitis C Ab (EIA) Nonreactive TB Test (T-Spot) Com Negative XR C spine, L spine 03/2023 FINDINGS: CERVICAL SPINE: The cervical spine is visualized to the level of C7-T1 on the lateral view. Vertebral body alignment is maintained. Vertebral body heights are maintained. Lateral masses of C1 are well aligned on C2. Visualized portion of the dens is intact. Mild multilevel degenerative disc disease with loss of disc space height and facet arthropathy. No syndesmophyte. No prevertebral soft tissue swelling. LUMBAR SPINE: 5 nonrib-bearing lumbar-type vertebral bodies. Vertebral body heights are maintained. Alignment is maintained. Shiny corner sign the anterior superior endplate of L5 with a syndesmophyte at L3-L4 compatible with history of ankylosing spondylitis. Mild degenerative disc disease at L4-L5 and L5-S1 with loss of disc space height and facet arthropathy. Paravertebral soft tissues are unremarkable. IMPRESSION: * Shiny corner sign the anterior superior endplate of L5 with a syndesmophyte at L3-L4 compatible with history of ankylosing spondylitis. * Mild spondylosis of the cervical and lumbar spine. Assessment & Plan Assessment & Plan (1) Ankylosing spondylitis of multiple sites in spine: Comment: 20+ years of symptoms, hx iritis, did well on Enbrel since 2006 Code(s): M45.0 - Ankylosing spondylitis of multiple sites in spine Category: Medical Plan: #Ankylosing spondylitis Patient is a 69 y.o. male with ankylosing spondylitis here today for follow up. Inflammatory markers have doubled in the last year and this is associated worsening achyness of his spine especially his neck. Discussed with him that the Enbrel may be losing efficacy and we may need to switch medication to Humira. We will get blood work today, if inflammatory markers are persistently elevated we will need to change medications Plan - Check labs: CBC, CMP, ESR, CRP, Hepatitis panel and T spot - Enbrel 50mg SC every week - Change to Humira 40mg every 2 weeks if ESR/CRP persistently elevated - RTC 4 months - Labs before visit: CBC, CMP, ESR, CRP (2) Encounter for monitoring of etanercept therapy: Code(s): Z51.81 - Encounter for therapeutic drug level monitoring; Z79.620 - correction (current) use of immunosuppressive biologic Plan: #Long-term Use of TNF Inhibitors: Enbrel Discussed with the patient the benefits and risks of TNF inhibitors for the management of the rheumatic condition Benefits include reduce pain, maintenance of remission and reduction of flares as well as progression of the disease Risks include injection sites/infusion reactions, serious infections (such as bacterial infections, opportunistic infections), malignancy, delaminating syndromes, autoimmune phenomena, CHF exacerbations, palmar plantar psoriasis and cytopenias Recommended rotating injection sites, and holding medication during and for up to 1 week after resolution of a febrile illness or open skin wound Plan I spent 30 minutes reviewing the record and labs, taking a history, examining the patient, discussing the treatment plan, ordering diagnostic work up and documenting in the medical record Orders: Orders XR cervical spine w flex/ext Today M45.0 - Ankylosing spondylitis of multiple sites in spine XR sacroiliac joint min 3V Today M45.0 - Ankylosing spondylitis of multiple sites in spine XR thoracic spine 3V Today M45.0 - Ankylosing spondylitis of multiple sites in spine XR hip LT min 2V Today M45.0 - Ankylosing spondylitis of multiple sites in s pine Erythrocyte Sedimentation Rate Today Z79.60 - terminal makeup operator (current) use of unspecified immunomodulators and immunosuppressants Complete Blood Count Auto Diff Today Z79.60 - correction (current) use of unspecified immunomodulators and immunosuppressants Comprehensive [place]. Panel Fast Today Z79.60 - terminal makeup operator (current) use of unspecified immunomodulators and immunosuppressants XR lumbar spine 4V min Today M45.0 - Ankylosing spondylitis of multiple sites in spine XR hip RT min 2V Today M45.0 - Ankylosing spondylitis of multiple sites in spine C Reactive Protein Today Z79.60 - terminal makeup operator (current) use of unspecified immunomodulators and immunosuppressants Hepatitis A,B,C Profile Today M45.0 - Ankylosing spondylitis of multiple sites in spine T Spot TB Today M45.0 - Ankylosing spondylitis of multiple sites in spine Coding Level of Care Code Est Pt Level 4 (62133) Complex EM visit Add On G2211 Diagnoses Ankylosing spondylitis of multiple sites in spine M45.0 Encounter for monitoring of etanercept therapy Z51.81; Z79.620
[2024-09-04 09:08] VITALS: BP 100/60; PULSE 52; O2SAT 98; BMI 23.6
--- OUTSIDE RECORDS SUMMARY | 2024-09-04 09:18 | XMS_ITS ---
Author Name [place] Organization Unknown Encounters Encounter Type Encounter Reason Primary Diagnosis Location Date Ambulatory [facility] 12/04/2023 Care Team Organization Name Specialty Phone Email Start Date End Da te [facility] 05/31/2024 [facility] 04/24/202412/2024 [facility] 08/23/2023 [facility] 12/13/2021 09/24/2023
== END 2024-09-04 09:37 | disposition home or self-care (01) ==
PROVIDERS: PCP Internal Medicine; Visit Provider Student in an Organized Health Care Education/Training Program
DX: M45.0 Ankylosing spondylitis of multiple sites in spine (principal); Z51.81 Encounter for therapeutic drug level monitoring; Z79.620 Long term (current) use of immunosuppressive biologic
CPT/HCPCS: 99214; G2211

== ENCOUNTER 2024-09-04 09:41 | Outpatient (REF) | payer MEDICARE, SELFPAY ==
[2024-09-04 11:14] LABS: MANUAL DIFF FLAG NO
[2024-09-04 11:22] LABS: Hematocrit 51.5 % (42.0-52.0); Hemoglobin 17.1 g/dl (14.0-18.0); Imm Gran Abs Auto 0.03 X10*3/uL (0.00-0.03); Imm Gran Pct Auto 0.4 % (0.0-0.4); Lymphocytes Absolute Auto 2.2 X10*3/uL (1.2-4.9); Mean Corpuscular HGB Conc 33.2 g/dl (31.0-36.0); Mean Corpuscular Hemoglobin 29.2 pg (27.0-33.0); Mean Corpuscular Volume 88.0 fL (80.0-98.0); NRBC Abs Auto 0.020 X10*3/uL (0.0-0.012); NRBC Pct Auto 0.2 /100WBC (0.0-0.2); Platelet Count 338 X10*3/uL (160-400); Red Blood Count 5.85 X10*6/uL (4.60-5.80); White Blood Count 8.6 X10*3/uL (4.8-10.8)
[2024-09-04 11:40] LABS: Alanine Aminotransferase 18 U/L (0-40); Albumin Level 4.3 g/dL (3.5-5.0); Alkaline Phosphatase 101 U/L (39-117); Anion Gap 12 (12-20); Aspartate Amino Transferase 24 U/L (5-37); Blood Urea Nitrogen 22 mg/dL (9-16); Calcium 9.2 mg/dL (8.4-10.2); Carbon Dioxide 27 mmol/L (22-29); Chloride 106 mmol/L (96-108); Estimated Glomerular Filt Rate > 60; Potassium 4.4 mmol/L (3.3-5.1); Sodium 141 mmol/L (135-145); Total Protein 7.9 g/dL (6.5-8.0)
[2024-09-04 11:50] LABS: Hepatitis A Antibody IgM 0.18 Index (0-0.79); ~Hepatitis A Antibody IgM Nonreactive (Nonreactive)
[2024-09-04 11:58] LABS: HBS Num1 0.00 mIU/mL (0-7.99); HBc Num1 0.12 S/CO (0.00-0.79); HBsAGNum1 0.42 S/CO (0.00-0.99); Hepatitis B Surface Antigen Negative (Negative); ~HepC Num1 0.11 S/CO (0.00-0.79); ~Hepatitis B Surface Antibody NONREACTIVE (Nonreactive); ~Hepatitis C Antibody Nonreactive (Nonreactive)
[2024-09-06 21:49] LABS: TS Negative Control Passed; TS Panel A 0; TS Panel B 0; TS Positive Control Passed; TSpotTB Negative (Negative)
== END 2024-09-04 09:42 | disposition home or self-care (01) ==
LOC: HO.10HDL 09:41
PROVIDERS: Visit Provider Student in an Organized Health Care Education/Training Program
DX: Z11.1 Encounter for screening for respiratory tuberculosis (principal); M45.0 Ankylosing spondylitis of multiple sites in spine; Z79.60 Long term (current) use of unspecified immunomodulators and immunosuppressants
CPT/HCPCS: 36415; 80053; 85025; 85652; 86140; 86481; 86704; 86706; 86709; 86803; 87340

== ENCOUNTER 2024-12-05 11:53 | Outpatient (REF) | payer MEDICARE, SELFPAY ==
--- NOTE | ~2024-12-05 | XR_ITS ---
EXAMINATION: XR CERVICAL SPINE CLINICAL INFORMATION: M45.0 - Ankylosing spondylitis of multiple sites in spine COMPARISON: None available. TECHNIQUE: AP, AP odontoid and lateral: Flexion, neutral, and extension view x-rays of the cervical spine. FINDINGS: C2-3 demonstrates mild disc space narrowing and posterior osteophytes. There is narrowing of the facet joint. C3-4 demonstrates mild disc space narrowing and grade 1 retrolisthesis without instability. C4-5 demonstrates mild disc space narrowing with ossification in the disc. There is also narrowing of the facet joint space with possible bridging bone. There is mild grade 1 retrolisthesis without instability. C5-6 injuries mild disc space narrowing and calcific density within the disc. There is also bridging bone across the facets. C6-7 demonstrate mild disc space narrowing C7-T1: Unremarkable. XR/XR cervical spine w flex/ext IMPRESSION: Mild to moderate changes consistent with ankylosing spondylitis. Electronically signed by: Albert Putnam MD 12/05/2024 01:05 PM EDT
--- NOTE | ~2024-12-05 | XR_ITS ---
Exam: Five-view x-ray lumbar spine TECHNIQUE: AP, lateral, lateral spot, and bilateral oblique views of the lumbar spine INDICATION: M45.0 - Ankylosing spondylitis of multiple sites in spine Prior: March 22, 2023 FINDINGS: There are 5 nonrib-bearing lumbar segments. There is bony fusion of bilateral SI joints and pubic symphysis joint. Moderate thickness syndesmophyte bands across anterior L3-4. There is also facet joint space narrowing and osteophytes. L4-5 demonstrates mild disc space narrowing with facet sclerosis and osteophytes. L5-S1 demonstrates incompletely anterior syndesmophyte with facet sclerosis and osteophytes. XR/XR lumbar spine 4V min Impression: Degenerative changes consistent with ankylosing spondylitis have minimally progressed since the prior. Electronically signed by: Albert Putnam MD 12/05/2024 01:01 PM EDT
--- NOTE | ~2024-12-05 | XR_ITS ---
EXAMINATION: XR THORACIC SPINE CLINICAL INFORMATION: M45.0 - Ankylosing spondylitis of multiple sites in spine COMPARISON: None available. TECHNIQUE: 2 views of the thoracic spine were obtained. FINDINGS: Thin syndesmophytes are visible in the anterior mid and superior thoracic spine. Disc spaces are preserved. No vertebral body height and alignment is preserved. XR/XR thoracic spine 3V IMPRESSION: Mild changes consistent with ankylosing spondylitis. Electronically signed by: Albert Putnam MD 12/05/2024 12:57 PM EDT
--- NOTE | ~2024-12-05 | XR_ITS ---
EXAMINATION: XR SACROILIAC JOINTS CLINICAL INFORMATION: M45.0 - Ankylosing spondylitis of multiple sites in spine COMPARISON: None available. TECHNIQUE: 3 views of the sacroiliac joints FINDINGS: There is bony fusion across the SI joints somewhat sparing the upper right greater than left SI joint. There is bony fusion of pubic symphysis joint. XR/XR sacroiliac joint min 3V IMPRESSION: There is bony fusion of bilateral SI and pubic symphysis joint consistent with chronic disease. Electronically signed by: Albert Putnam MD 12/05/2024 01:06 PM EDT
--- NOTE | ~2024-12-05 | XR_ITS ---
EXAMINATION: XR BILATERAL HIPS WITH AP PELVIS CLINICAL INFORMATION: M45.0 - Ankylosing spondylitis of multiple sites in spine COMPARISON: March 22, 2023 TECHNIQUE: AP and frog-leg lateral views of each hip. FINDINGS: There is fusion of the pubic symphysis joint. Left hip: There is stable mild/moderate axial joint space narrowing of the left hip joint. There are small marginal osteophytes. Right hip: There is mild superior lateral joint space narrowing. There are marginal osteophytes. The appearance is similar to the prior. XR/XR hips TIMMY min 3V IMPRESSION: Mild to moderate osteoarthritis involving both hip joints is similar to the prior. There is bony fusion of the pubic symphysis joint. Electronically signed by: Albert Putnam MD 12/05/2024 12:57 PM EDT
--- OUTSIDE RECORDS SUMMARY | 2024-12-05 13:30 | XMS_ITS | Data Portability ---
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 Primary Care Provide r Assessment No assessment recorded. Plan of Treatment Reminders Order Date Submit Date Provider Last Modified By Organization Details Last Modified Time Details Appointments None recorded. Lab rapid SARS CoV 2 Ag, QL IA, respiratory specimen 2021 022 [email or web address], [address], 11:11:52 Referral None recorded. Procedures None recorded. Surgeries None recorded. Imaging None recorded. Medication Orders None recorded. Patient TargetsNo targets recorded. Patient Instructions Encounter Date Encounter Id Patient Instructions Last Modified By Organization Details Last Modified Time 01/22/2022 [id number] nausea and vomiting: care instructions Not available 01/22/2022 11:11:52 Your symptoms ar e concerning for something going on though the work up would likely include some blood work and imaging to start which we are unable to do here today. We recommend following up with your primary care office this week and discussing with them. We discussed some infectious causes for diarrhea but your symptoms do not fit well into those syndromes. Stay hydrated, continue with your medications as directed and follow up with your PCP Not available 01/22/2022 11:11:48 Reason for Referral None Reported. Results Created Date Observation Date Name Description Value Unit Range Abnormal Flag Note LastModifiedBy Organization Detail LastModifiedTime 01/23/20 22 01/22/2022 rapid SARS CoV 2 Ag, QL IA, respi rator y speci men Unknown Analyte Normal =Negat thee Not Available [address] [place], [address], 01/22/2022 10:13:39 01/23/20 22 01/22/2022 rapid SARS CoV 2 Ag, QL IA, respi rator y speci men Unknown Analyte negati ve Not Available [address] [place], [address], 01/22/2022 10:13:39 Result Notes None recorded. Problems Name Problem SNOMED Code Status Onset Date Resolution Date Notes Provider Name and Address Organization Details Recorded Time Ankylosing spondylitis 8471525 Active 2021 BRAD[facility] 10:12:25 Hyperlipidemia 64021067 Active 2021 BRADEN [facility] 10:12:32 Problem Notes None recorded. Procedures Surgical History Date Name Laterality Status Provider Name and Address Organization Details Recorded Time colonoscopy completed JESSICA [facility] 01/22/2022 10:13:26 Imaging Results None recorded. Procedure Notes None recorded. Medical Equipment None Reported. Allergies No known drug allergies Medications Name Sig Start Date Stop Date Status Note LastModified by Organization Details LastModified Time atorvastatin active Not Available Not Available Not Available Enbrel active Not Available Not Availa ble Not Available Vitals Date Recorded Body height Body mass index (BMI) Body weight Body temperature Respiratory rate Heart rate Oxygen saturation Oxygen saturation in Arterial blood by Pulse oximetry Systolic And Diastolic Provider Name and Address Organization Details Last Updated DateTime 2 160.02 cm 23 kg/m2 70530.0 1 g 97.4 [degF] 18 /min 57 /min 96 % 96 % 121/69 mm[Hg] JESSICA [facility] 2 10:15:25 Social History Question Answer Notes LastModified by Organizat ion Details LastModified Time Tobacco Smoking Status Current Every Day Smoker [facility]ADEN [facility] 01/22/2022 10:13:06 Which Illicit Or Recreational Drugs Have You Used? Marijuana Information not available 01/22/2022 Have You Had Direct Contact, Or Contact During Intimacy, With Monkeypox Rash, Scabs, Or Body Fluids From A Person With Monkeypox? No Information not available 01/22/2022 How Much Tobacco Do You Smoke? 0.5 PPD Information not available 01/22/2022 Have You Recently Traveled Abroad? No Information not available 01/22/2022 Are You Currently In School? No Information not available 01/22/2022 Sex: Unknown Functional Status Question Answer Note LastModified by Organizat ion Details LastModified Time Do you use any illicit or recreational drugs? Yes Information not available 01/22/2022 Do you or have you ever used any other forms of tobacco or nicotine? No Information not available 01/22/2022 What is your level of alcohol consumption? None Information not available 01/22/2022 Are you currently employed? Yes Information not available 01/22/2022 Mental Status None recorded. Family History Relationship Description Onset Age of this Age Resolved Age Notes LastModified by Organization Details LastModified Time Father No current problems or disability Not available 01/05 10:12:38 Mother No current problems or disability Not available 01/05 10:12:38 Medical History No medical history recorded. Immunizations Vaccine Type Date Status Note Provider Nam e and Address Organization Details Recorded Time COVID-19, mRNA, LNP-S, PF, 30 mcg/0.3 mL dose 1 completed JESSICA CANALES null, [place] - [facility] 01/22/2022 10:11:31 Influenza, MDCK, quadrivalent, PF 2 completed JESSICA CANALES null, [place] - [facility] 01/22/2022 10:11:31 Influenza, split virus, trivalent, preservative 8 completed JESSICA thorne, [place] - [facility] 01/22/2022 10:11:31 Influenza, split virus, trivalent, preservative 4 completed JESSICA CANALES null, PA - [facility] 01/22/2022 10:11:31 Influenza, split virus, trivalent, preservative 5 completed JESSICA CANALES null, PA - [facility] 01/22/2022 10:11:31 Influenza, split virus, quadrivalent, PF 0 completed JESSICA CANALES null, PA - [facility] 01/22/2022 10:11:31 Influenza, split virus, trivalent, preservative 6 completed JESSICA CANALES null, PA - [facility] 01/22/2022 10:11:31 pneumococcal polysaccharide PPV23 8 completed JESSICA CANALES null, PA - [facility] 01/22/2022 10:11:31 Pneumococcal conjugate PCV 13 8 completed JESSICA CANALES null, PA - [facility] 01/22/2022 10:11:31 Influenza, split virus, trivalent, preservative 3 completed JESSICA CANALES null, PA - [facility] 01/22/2022 10:11:31 Influenza, split virus, trivalent, preservative 8 completed JESSICA CANALES null, PA - [facility] 01/22/2022 10:11:31 COVID-19, mRNA, LNP-S, PF, 30 mcg/0.3 mL dose 1 completed JESSICA CANALES null, [place] - [facility] 01/22/2022 10:11:31 Td (adult), 2 Lf tetanus toxoid, preservative free, adsorbed 8 completed JESSICA CANALES null, [place] - [facility] 01/22/2022 10:11:31 Influenza, split virus, trivalent, preservative 1 completed JESSICA CANALES null, [place] - [facility] 01/22/2022 10:11:31 Influenza, high-dose, trivalent, PF 8 completed BRADEN [facility] 01/22/2022 10:11:31 Influenza, split virus, trivalent, preservative 2 completed BRADEN [facility] 01/22/2022 10:11:31 Past Encounters Encounter ID Performer Location Encounter Start Date Encounter Closed Date Diagnosis/Indication Diagnosis SNOMED-CT Code Diagnosis ICD10 Code Diagnosis IMO Codes Diagnosis Note [id number] [address] [place] [address] 04/25/2017 11:05:45 04/25/2017 12:01:42 [id number] [address] [place] [phone] 10/31/2016 09:14:32 10/31/2016 10:07:52 [id number] [address] [place] [phone] 11/05/2018 11:39:03 11/05/2018 12:10:07 [id number] [address] [place] [address] 04/12/2015 15:48:32 04/12/2015 16:44:25 [id number] BRADEN Sanchez [address] [place] [address] 01/22/2022 08:28:34 01/22/2022 11:13:46 Diarrhea [id number] R19.7 Health Concerns Section Related Observation LastModified by Organization Detai ls LastModified Time None Recorded Concern Status LastModified by Organization Details LastModified Time None Recorded Advance Directives Directive None Recorded Payers Insurance Date Sequence Insurance Name Policy Number Policy Flores Covered Member ID Flores Member ID Guarantor Name 01/22/2022 1 [facility] [id number] Jeff Spears [id number] Jeff Spears Notes Date Note Type Note Provider Name and Address Organization Details Recorded Time 2 text/html Nausea UCReported by PatientHPIFor context, patient reportsothers with similar symptoms. For associated symptoms, patient reportscholesterol issuesanddiarrheabut reportsno fever(loose stools once or twice daily). For source of patient information, patient reportspatient arrived at urgent care ambulatory. For location, patient reportsdiffuse. For quality, patient reportsintermittent. For severity, patient reportsmild. For duration, patient reportspresent for 2-4 weeks(about 5 weeks now). For alleviating factors, patient reportsrelieved with eating. For onset/timing, (better after eating). BRADEN Polk [address] [place], [address], [place] - [facility] 01/22/2022 11:12:08
== END 2024-12-05 11:54 | disposition home or self-care (01) ==
LOC: HO.XRAY 11:53
PROVIDERS: PCP Internal Medicine Geriatric Medicine; Visit Provider Student in an Organized Health Care Education/Training Program
DX: M45.0 Ankylosing spondylitis of multiple sites in spine (principal)
CPT/HCPCS: 72052; 72072; 72110; 72202; 73522

== ENCOUNTER → 2024-12-05 11:59 | Outpatient (BNV) | payer MEDICARE, SELFPAY | PROVIDERS: PCP Internal Medicine Geriatric Medicine; Visit Provider Radiology Diagnostic Radiology | DX: M45.0 Ankylosing spondylitis of multiple sites in spine (principal) | CPT/HCPCS: 72052; 72072; 72110; 72202; 73522 ==

== ENCOUNTER 2024-12-12 08:45 | Outpatient (REF) | payer MEDICARE, SELFPAY ==
--- OUTSIDE RECORDS SUMMARY | 2024-12-12 10:45 | XMS_ITS | Data Portability ---
Author Organization [facility] Address [address] [place] [address] Care Team Providers Care Utility Clerk Name Role Phone [facility] Primary Care Provide r Assessment No assessment recorded. Plan of Treatment Reminders Order Date Submit Date Provider Last Modified By Organization Details Last Modified Time Details Appointments None recorded. Lab rapid SARS CoV 2 Ag, QL IA, respiratory specimen 2021 0[email or web address], [address], 11:11:52 Referral None recorded. Procedures None recorded. Surgeries None recorded. Imaging None recorded. Medication Orders None recorded. Patient TargetsNo targets recorded. Patient Instructions Encounter Date Encounter Id Patient Instructions Last Modified By Organization Details Last Modified Time 01/22/2022 [id number] nausea and vomiting: care instructions Not available [...] thee Not Available [facility] [address] [place], [address], 01/22/2022 10:13:39 01/23/20 22 01/22/2022 rapid SARS CoV 2 Ag, QL IA, respi rator y speci men Unknown Analyte negati ve Not Available [address] [place], [address], 01/22/2022 10:13:39 Result Notes None recorded. Problems Name Problem SNOMED Code Status Onset Date Resolution Date Notes Provider Name and Address Organization Details Recorded Time Ankylosing spondylitis 2813507 Active 2021 BRAD[facility] 10:12:25 Hyperlipidemia 11220981 Active 2021 BRADEN [facility] 10:12:32 Problem [...] Updated DateTime 2 160.02 cm 23 kg/m2 39875.0 1 g 97.4 [degF] 18 /min 57 [...] ICD10 Code Diagnosis IMO Codes Diagnosis Note [id number] [address] [address] [address] [place] [address] 04/25/2017 11:05:45 04/25/2017 12:01:42 [id number] [address] [address] [place] [phone] 10/31/2016 09:14:32 10/31/2016 10:07:52 [id number] [address] [place] [phone] 11/05/2018 11:39:03 11/05/2018 12:10:07 [id number] [address] [address] [place] [address] 04/12/2015 15:48:32 04/12/2015 16:44:25 [id number] BRADEN Sanchez [address] [place] [address] 01/22/2022 08:28:34 01/22/2022 11:13:46 Diarrhea [id number] R19.7 Health Concerns Section Related Observation LastModified by Organization Detai ls LastModified Time None Recorded Concern Status LastModified by Organization Details LastModified Time None Recorded Advance Directives Directive None Recorded Payers Insurance Date Sequence Insurance Name Policy Number Policy Flores Covered Member ID Flores Member ID Guarantor Name 01/22/2022 1 [facility] [id number] Jeff Spears [id number] Jeff Spears Notes Date Note Type Note [...] eating). BRADEN Polk [address] [place], [id number], [place] - [facility] 01/22/2022 11:12:08
[2024-12-12 13:16] LABS: MANUAL DIFF FLAG NO
[2024-12-12 13:35] LABS: Hematocrit 50.0 % (42.0-52.0); Hemoglobin 16.3 g/dl (14.0-18.0); Imm Gran Abs Auto 0.04 X10*3/uL (0.00-0.03); Imm Gran Pct Auto 0.5 % (0.0-0.4); Lymphocytes Absolute Auto 2.0 X10*3/uL (1.2-4.9); Mean Corpuscular HGB Conc 32.6 g/dl (31.0-36.0); Mean Corpuscular Hemoglobin 29.1 pg (27.0-33.0); Mean Corpuscular Volume 89.3 fL (80.0-98.0); NRBC Abs Auto 0.000 X10*3/uL (0.0-0.012); NRBC Pct Auto 0.0 /100WBC (0.0-0.2); Platelet Count 339 X10*3/uL (160-400); Red Blood Count 5.60 X10*6/uL (4.60-5.80); White Blood Count 8.3 X10*3/uL (4.8-10.8)
[2024-12-12 13:59] LABS: Alanine Aminotransferase 19 U/L (0-40); Albumin Level 4.1 g/dL (3.5-5.0); Alkaline Phosphatase 91 U/L (39-117); Anion Gap 13 (12-20); Aspartate Amino Transferase 27 U/L (5-37); Blood Urea Nitrogen 25 mg/dL (9-16); Calcium 8.9 mg/dL (8.4-10.2); Carbon Dioxide 24 mmol/L (22-29); Chloride 107 mmol/L (96-108); Estimated Glomerular Filt Rate > 60; Potassium 5.0 mmol/L (3.3-5.1); Sodium 139 mmol/L (135-145); Total Protein 7.6 g/dL (6.5-8.0)
== END 2024-12-12 08:46 | disposition home or self-care (01) ==
LOC: HO.HKASLDS 08:45
PROVIDERS: PCP Internal Medicine; Visit Provider Student in an Organized Health Care Education/Training Program
DX: Z51.81 Encounter for therapeutic drug level monitoring (principal); M45.0 Ankylosing spondylitis of multiple sites in spine; Z79.60 Long term (current) use of unspecified immunomodulators and immunosuppressants; Z79.620 Long term (current) use of immunosuppressive biologic; Z79.899 Other long term (current) drug therapy
CPT/HCPCS: 36415; 80053; 85025; 85652; 86140; 99212

== ENCOUNTER 2024-12-12 08:45 | Outpatient (AMB) | payer MEDICARE, SELFPAY ==
--- NOTE | 2024-12-12 08:51 | A.OFFVIS_ITS ---
Vital Signs 12/12/24 08:57 Height 5 ft 3 in Weight 132 lb 7.965 oz BMI 23.5 BP 122/70 Blood Pressure Location Lt brachial Position Sitting Pulse 52 Pulse Source Pulse Oximeter Pulse Oximetry (%) 98 Oxygen Delivery Method Room Air Intake Visit Reasons: Intake Note: Patient presents for follow up. Allergies No Known Allergies (No Known Allergies*) Allergy (Verified 12/12/24 08:56) Medication List - Last Reconciled 12/12/24 by Lesly Santo MD atorvastatin 10 mg PO DAILY clobetasol 0.05% 1 appl topical BID 2 weeks etanercept (Enbrel SureClick) 50 mg subcut QWEEK 30 days naproxen sodium (Aleve) 440 mg PO BID PRN HPI Comments Details: Patient is a 69-year-old male with hyperlipidemia, polyarticular osteoarthritis and ankylosing spondylitis here today for follow up Interval History: Patient last seen 09/04/24 with me - On Enbrel 50mg SC weekly - Continues to do well but notes he is feeling more achy especially in his neck - Labs improved and no changes made to his Enbrel Today - On Enbrel 50mg SC weekly - Doing well overall - Still has some general achyness - had a fall down a 12 ft slope, no broken bones or worsening symptoms Rheumatologic History: Melvina Hwang - 20+ years of symptoms, hx iritis, did well on Enbrel since 2006 Initial History: The patient presents for evaluation of his ankylosing spondylitis. He has longstanding disease with significant stiffness in the spine. He has been on Enbrel for over 10 years with successful response. However his prescription ran out about a month ago and he has not been able to get a refill. I had last seen in May of 2020 and he was doing fine with the Enbrel at 50 mg weekly. He did have an episode of diverticulitis last fall that was treated with oral antibiotics. He does not recall any previous colonoscopy even for screening purposes. The GI symptoms have subsided. He does not have any appointment with a locker room clerk. He did lose weight with the diverticulitis. However with running out of the Enbrel about 4 weeks ago his joint symptoms have returned. This is primarily manifested by buttock and lower back pains but he also has stiffness in the neck and shoulders. The right buttock area appears to be more comfortable than the left. He does have some known osteoarthritis in the hips as well. He is taking naproxen 220 mg [id number] tablets, 2 daily and occasionally supplements this with ibuprofen. He has not had any return of iritis episodes and has no history of any skin rashes. Current Rheumatology Medication(s): Enbrel 50mg SC every week [facility] Medical History (Updated 03/22/23 @ 10:35 by ESTEBAN Gallego) Psoriasis Elevated cholesterol Smoker Osteoarthritis, hip, bilateral Long-term use of immunosuppressant medication Diverticulosis Ankylosing spondylitis of multiple sites in spine Surgical History Hx of colonoscopy Social History Household Members: Significant Other Housing: House Are you a primary respiratory care assistant to a significant other at home: No Do you presently have visiting nurse or other home services: No 75 years or older and lives alone: No Alcohol intake: never Patient Tobacco Use Status: Current everyday Tobacco user Tobacco use type: Cigarette Cigarette Packs Per Day: 0.5 Cigarettes Per Day: 10.0 Years Smoked: 20 years e-Cigarette/Vaping Use: Never Used Second Hand Smoke Exposure: Yes service: No Current occupational status: retired 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 Review of Systems Narrative Review of Systems Constitutional: Denies fever, chills, weight loss ENT: Denies vision changes, eye pain or eye redness, dental caries, dry mouth GI: Denies nausea, vomiting, diarrhea, abdominal pain, change in BM Pulm: Denies SOB, OTERO, hemoptysis, wheezing Cards: Denies chest pain, palpitations Skin: Denies Raynaud's, rash, nail changes, photosensitivity, EXPRESS MANAGER: Denies headaches, weakness, paresthesias, recurrent falls MSK: as per HPI All other systems reviewed and are unremarkable except noted above Physical Exam Exam Exam: Vital signs reviewed Physical Examination CONSTITUITIONAL Patient alert and cooperative. Well appearing and in no apparent painful distress MSK Hands * Right Hand: Able to make a fist. No swelling or tenderness to palpation of the MCPs, PIPs or DIPs. * Left Hand: Able to make a fist. No swelling or tenderness to palpation of the MCPs, PIPs or DIPs. Wrists * Right Wrist: Full ROM to flexion and extension. No swelling or TTP * Left Wrist: Full ROM to flexion and extension. No swelling or TTP Elbows * Right Elbow: Full ROM. No swelling or TTP. No TTP of the medial epicondyle. No TTP of the lateral epicondyle * Left Elbow: Full ROM. No swelling or TTP. No TTP of the medial epicondyle. No TTP of the lateral epicondyle Shoulders * Right shoulder: Good ROM. No swelling noted. No TTP of the AC joint. No TTP of the subacromial bursa. No TTP of the posterior shoulder * Left shoulder: Good ROM. No swelling noted. No TTP of the AC joint. No TTP of the subacromial bursa. No TTP of the posterior shoulder Knees * Right knee: No swelling noted. No TTP of the knee joint line. No TTP of pes anserine bursa * Left knee: No swelling noted. No TTP of the knee joint line. No TTP of pes anserine bursa. Ankles * Right ankle: Good ankle dorsiflexion and plantar flexion. No swelling. No TTP of the ankle joint * Left ankle: Good ankle dorsiflexion and plantar flexion. No swelling. No TTP of the ankle joint Feet * Right foot: Negative squeeze test * Left foot: Negative squeeze test Tender points? * No tenderness to palpation of the bilateral trapezius, supraspinatus, anterior costochondral junctions, bilateral suboccipital muscle insertions SKIN No rashes Vital Signs: Last Vital Signs Pulse 52 12/12/24 08:57 BP 122/70 12/12/24 08:57 Pulse Ox 98 12/12/24 08:57 Oxygen Delivery Method Room Air 12/12/24 08:57 BMI result Body Mass Index 23.5 Results Reviewed Results Reviewed: Laboratory Tests 04/04/24 09/04/24 12:00 09:48 WBC 8.6 RBC 5.85 H Hgb 17.1 Hct 51.5 Plt Count 338 ESR 3 Sodium 141 Potassium 4.4 Chloride 106 Carbon Dioxide 27 BUN 22 H Creatinine 0.96 AST 24 ALT 18 C-Reactive Protein 10.09 H 2.47 H Laboratory Tests 09/04/24 09:48 Hepatitis A IgM Ab Nonreactive Hep Bs Antigen Negative Hep Bs Antibody NONREACTIVE Hep B Core Total Ab Nonreactive Hepatitis C Ab (EIA) Nonreactive TB Test (T-Spot) Com Negative XR C spine 11/2024 FINDINGS: C2-3 demonstrates mild disc space narrowing and posterior osteophytes. There is narrowing of the facet joint. C3-4 demonstrates mild disc space narrowing and grade 1 retrolisthesis without instability. C4-5 demonstrates mild disc space narrowing with ossification in the disc. There is also narrowing of the facet joint space with possible bridging bone. There is mild grade 1 retrolisthesis without instability. C5-6 injuries mild disc space narrowing and calcific density within the disc. There is also bridging bone across the facets. C6-7 demonstrate mild disc space narrowing C7-T1: Unremarkable. IMPRESSION: Mild to moderate changes consistent with ankylosing spondylitis. XR T Spine 11/2024 FINDINGS: Thin syndesmophytes are visible in the anterior mid and superior thoracic spine. Disc spaces are preserved. No vertebral body height and alignment is preserved. IMPRESSION: Mild changes consistent with ankylosing spondylitis. L Spine 11/2024 FINDINGS: There are 5 nonrib-bearing lumbar segments. There is bony fusion of bilateral SI joints and pubic symphysis joint. Moderate thickness syndesmophyte bands across anterior L3-4. There is also facet joint space narrowing and osteophytes. L4-5 demonstrates mild disc space narrowing with facet sclerosis and osteophytes. L5-S1 demonstrates incompletely anterior syndesmophyte with facet sclerosis and osteophytes. Impression: Degenerative changes consistent with ankylosing spondylitis have minimally progressed since the prior. XR SI Joint 11/2024 FINDINGS: There is bony fusion across the SI joints somewhat sparing the upper right greater than left SI joint. There is bony fusion of pubic symphysis joint. IMPRESSION: There is bony fusion of bilateral SI and pubic symphysis joint consistent with chronic disease. XR Bilateral Hips 11/2024 FINDINGS: There is fusion of the pubic symphysis joint. Left hip: There is stable mild/moderate axial joint space narrowing of the left hip joint. There are small marginal osteophytes. Right hip: There is mild superior lateral joint space narrowing. There are marginal osteophytes. The appearance is similar to the prior. IMPRESSION: Mild to moderate osteoarthritis involving both hip joints is similar to the prior. There is bony fusion of the pubic symphysis joint. Assessment & Plan Assessment & Plan (1) Ankylosing spondylitis of multiple sites in spine: Comment: 20+ years of symptoms, hx iritis, did well on Enbrel since 2006 Code(s): M45.0 - Ankylosing spondylitis of multiple sites in spine Category: Medical Plan: #Ankylosing spondylitis Patient is a 69 y.o. male with ankylosing spondylitis here today for follow up. Last labs were improved in terms of his inflammatory markers No changes made to medication and he does not report worsening sx. We will continue Enbrel at its current dose Plan - Enbrel 50mg SC every week - RTC 4 months - Labs before visit: CBC, CMP, ESR, CRP (2) Encounter for monitoring of etanercept therapy: Code(s): Z51.81 - Encounter for therapeutic drug level monitoring; Z79.620 - senior living (current) use of immunosuppressive biologic Plan: #Long-term Use of TNF Inhibitors: Enbrel Discussed with the patient the benefits and risks of TNF inhibitors for the management of the rheumatic condition Benefits include reduce pain, maintenance of remission and reduction of flares as well as progression of the disease Risks include injection sites/infusion reactions, serious infections (such as bacterial infections, opportunistic infections), malignancy, delaminating syndromes, autoimmune phenomena, CHF exacerbations, palmar plantar psoriasis and cytopenias Recommended rotating injection sites, and holding medication during and for up to 1 week after resolution of a febrile illness or open skin wound Plan I spent 25 minutes reviewing the record and labs, taking a history, examining the patient, discussing the treatment plan, ordering diagnostic work up and documenting in the medical record Orders: Orders Complete Blood Count Auto Diff 4 Months Z79.899 - Other retirement (current) drug therapy Comprehensive Met. Panel 4 Months Z79.899 - Other keno terminal operator (current) drug therapy C Reactive Protein 4 Months Z79.899 - Other retirement (current) drug therapy Erythrocyte Sedimentation Rate 4 Months Z79.899 - Other retirement (current) drug therapy Medications: Refilled etanercept (Enbrel SureClick) 50 mg subcut QWEEK 5 mL 6RF 30 days M45.0 - Ankylosing spondylitis of multiple sites in spine Coding Level of Care Code Est Pt Level 3 (59599) Complex EM visit Add On G2211 Diagnoses Ankylosing spondylitis of multiple sites in spine M45.0 Encounter for monitoring of etanercept therapy Z51.81; Z79.620
[2024-12-12 08:57] VITALS: BP 122/70; PULSE 52; O2SAT 98; BMI 23.5
== END 2024-12-12 09:28 | disposition home or self-care (01) ==
LOC: HO.RHES 08:46
PROVIDERS: PCP Internal Medicine; Visit Provider Student in an Organized Health Care Education/Training Program
DX: M45.0 Ankylosing spondylitis of multiple sites in spine (principal); Z51.81 Encounter for therapeutic drug level monitoring; Z79.620 Long term (current) use of immunosuppressive biologic
CPT/HCPCS: 99213; G2211